=== PATIENT | male | born 1970 | race Caucasian/White ===

== ENCOUNTER 2022-09-15 01:55 | Emergency (ER) | payer OTHER ==
[2022-09-15 02:01] VITALS: BP 128/79; PULSE 99; RESP 18; TEMP 98
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
== END 2022-09-15 06:00 | disposition home or self-care (01) ==
LOC: EC 01:55
DX: F15.159 Other stimulant abuse with stimulant-induced psychotic disorder, unspecified (principal); I10 Essential (primary) hypertension; F17.200 Nicotine dependence, unspecified, uncomplicated
CPT/HCPCS: 82075; 99284

== ENCOUNTER 2022-11-07 20:45 | Emergency (ER) | payer SELFPAY ==
[2022-11-07 21:03] VITALS: TEMP 98.2
[2022-11-07] MEDS ORDERED: LORazepam 1 MG TAB PO STA (21:25)
--- NOTE | 2022-11-07 21:27 | ED ---
Psych HPI - General Chief Complaint: Psychiatric Symptoms Stated Complaint: Mental Health Time Seen by Provider: 11/07/22 21:17 Source: patient Mode of arrival: ambulatory - History of Present Illness Initial Comments: This 52-year-old male presents with complaint of methamphetamine abuse. He states that he has been doing it intermittently for the past 3 years. He is gone through rehab twice. He snorts the methamphetamines. He states that he feels very paranoid currently. He has heard occasional voices. He was here somewhat recently for similar. He is denying any current medical complaints. He denies any other drugs or alcohol. He states that he is barely been able to sleep recently. He has been very anxious. He is denying any suicidal ideations. He feels as though he may need to go back to rehabilitation. No other complaints or modifying factors. - Related Data Allergies Allergy/AdvReac Type Severity Reaction Status Date / Time No Known Allergies Allergy Verified 11/07/22 21:03 Review of Systems ROS Statement: Those systems with pertinent positive or pertinent negative responses have been documented in the HPI. ROS Other: All systems not noted in ROS Statement are negative. Past Medical History Past Medical History: Hypertension History of Any Multi-Drug Resistant Organisms: None Reported Past Surgical History: No Surgical Hx Reported Past Psychological History: No Psychological Hx Reported Smoking Status: Current every day smoker Past Alcohol Use History: None Reported Past Drug Use History: Methamphetamine General Exam - General Exam Comments Initial Comments: GENERAL: The patient is well nourished and well hydrated. VITAL SIGNS: Heart rate, blood pressure, respiratory rate reviewed as recorded in nurse's notes. EYES: Pupils are round and reactive. Extraocular movements are intact. No conjunctival / lid redness or swelling. ENT: No external evidence of injury, swelling, or ecchymosis. Airway is patent. Throat is clear. NECK: Nontender. No swelling or evidence of injury. No subcutaneous emphysema. Trachea is midline. No thyroid mass. HEART: Regular rate and rhythm. Good peripheral pulses. LUNGS/CHEST: Breath sounds clear and equal bilaterally. No rales, rhonchi, or wheezes. No ecchymosis, subcutaneous emphysema, or tenderness. ABDOMEN: Abdomen soft without tenderness. No palpable masses or organomegaly. No peritoneal signs. No abdominal wall swelling or ecchymosis. EXTREMITIES: No extremity tenderness. Normal muscle tone and function. No thoracolumbar tenderness. NEUROLOGIC: Sensation is grossly intact. Cranial nerve exam reveals face is symmetrical, tongue is midline, speech is clear. SKIN: No abrasions or ecchymosis is noted. No induration or masses noted. PSYCHIATRIC: Alert and oriented. Appears slightly anxious and fidgety. Limitations: no limitations Course Vital Signs 11/07/22 11/07/22 20:59 22:53 Temperature 98.2 F Pulse Rate 110 H 84 Respiratory 20 18 Rate Blood Pressure 116/76 139/86 O2 Sat by Pulse 97 98 Oximetry Medical Decision Making - Medical Decision Making The patient was seen and examined. All diagnostics are reviewed. Urine drug screen shows positive methamphetamines and amphetamines. Patient was seen by psych team and they clear him for discharge. Rehabilitation is recommended. Close follow up recommended. - Lab Data Lab Results 11/07/22 Range/Units 21:26 Urine Opiates Screen Not Detected (NotDetected) Ur Oxycodone Screen Not Detected (NotDetected) Urine Methadone Screen Not Detected (NotDetected) Ur Propoxyphene Screen Not Detected (NotDetected) Ur Barbiturates Screen Not Detected (NotDetected) U Tricyclic Antidepress Not Detected (NotDetected) Ur Phencyclidine Scrn Not Detected (NotDetected) Ur Amphetamines Screen Detected H (NotDetected) U Methamphetamines Scrn Detected H (NotDetected) U Benzodiazepines Scrn Not Detected (NotDetected) Urine Cocaine Screen Not Detected (NotDetected) U Marijuana (THC) Screen Not Detected (NotDetected) Disposition Clinical Impression: Methamphetamine abuse Disposition: HOME SELF-CARE Condition: Good Instructions (If sedation given, give patient instructions): Methamphetamine Abuse (ED) Is patient prescribed a controlled substance at d/c from ED?: No Referrals: Lasha Morris MD [Primary Care Provider] - 1-2 days Time of Disposition: 22:59
[2022-11-07 22:41] LABS: Amphetamine Screen,Urine Detected (NotDetected); Barbiturate Screen,Urine Not Detected (NotDetected); Benzodiazepines Screen,Urine Not Detected (NotDetected); Cocaine Screen,Urine Not Detected (NotDetected); Methadone Screen, Urine Not Detected (NotDetected); Opiate Screen,Urine Not Detected (NotDetected); Oxycodone Screen, Urine Not Detected (NotDetected); Phencyclidine Screen,Urine Not Detected (NotDetected); Tricyclic Antidepressant,Urine Not Detected (NotDetected); Urn Cannabinoid Scrn Not Detected (NotDetected)
[2022-11-07 22:54] VITALS: BP 139/86; PULSE 84; RESP 18
== END 2022-11-07 23:34 | disposition home or self-care (01) ==
LOC: EC 20:45 → SUPCPDRO 20:45 → EC 23:34
DX: F15.10 Other stimulant abuse, uncomplicated (principal); I10 Essential (primary) hypertension; F17.200 Nicotine dependence, unspecified, uncomplicated
CPT/HCPCS: 80306; 82075; 99285

== ENCOUNTER 2023-04-18 01:49 | Emergency (ER) | payer OTHER ==
[2023-04-18 02:11] VITALS: TEMP 97.7
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
[2023-04-18 04:54] VITALS: RESP 15
[2023-04-18 04:59] VITALS: BP 128/83; PULSE 86
[2023-04-18] MEDS ORDERED: ACETAMINOPHEN TAB 325 MG TAB PO STA (05:54)
== END 2023-04-18 06:29 | disposition home or self-care (01) ==
LOC: EC 01:49
DX: F15.10 Other stimulant abuse, uncomplicated (principal); R44.3 Hallucinations, unspecified; I10 Essential (primary) hypertension; F17.200 Nicotine dependence, unspecified, uncomplicated
CPT/HCPCS: 82075; 99284

== ENCOUNTER 2023-09-05 07:07 | Emergency (ER) | payer OTHER ==
[2023-09-05 07:43] VITALS: BP 136/86; PULSE 101; RESP 22; TEMP 98.1
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
[2023-09-05 08:46] LABS: Amphetamine Screen,Urine Detected (NotDetected); Barbiturate Screen,Urine Not Detected (NotDetected); Benzodiazepines Screen,Urine Not Detected (NotDetected); Cocaine Screen,Urine Not Detected (NotDetected); Methadone Screen, Urine Not Detected (NotDetected); Opiate Screen,Urine Not Detected (NotDetected); Oxycodone Screen, Urine Detected (NotDetected); Phencyclidine Screen,Urine Not Detected (NotDetected); Tricyclic Antidepressant,Urine Not Detected (NotDetected); Urn Cannabinoid Scrn Detected (NotDetected)
== END 2023-09-05 13:21 | disposition home or self-care (01) ==
LOC: EC 07:07
DX: F15.10 Other stimulant abuse, uncomplicated (principal); F23 Brief psychotic disorder; I10 Essential (primary) hypertension; E78.5 Hyperlipidemia, unspecified; F17.200 Nicotine dependence, unspecified, uncomplicated; Z79.899 Other long term (current) drug therapy
CPT/HCPCS: 80306; 82075; 99285

== ENCOUNTER 2024-01-13 18:30 | Emergency (ER) | payer OTHER ==
[2024-01-13] MEDS: HYDROmorphone 1 MG/ML 1 ML SYRINGE IVP STA (18:41)
[2024-01-13] MEDS: SODIUM CHLORIDE 0.9% 1,000 ML IV STA (18:44)
[2024-01-13 19:00] LABS: Basophils # (A) 0.1 k/uL (0-0.2); Basophils % (A) 1 %; Eosinophils # (A) 0.3 k/uL (0-0.7); Eosinophils % (A) 2 %; HCT 31.8 % (39.0-53.0); HGB 11.3 gm/dL (13.0-17.5); Lymphocytes # (A) 1.3 k/uL (1.0-4.8); Lymphocytes % (A) 10 %; MCH 30.1 pg (25.0-35.0); MCHC 35.5 g/dL (31.0-37.0); MCV 84.8 fL (80.0-100.0); Mean Platelet Volume 6.8; Monocytes % (A) 8 %; Neutrophils # (A) 9.6 k/uL (1.3-7.7); Neutrophils % (A) 77 %; Platelet Count 433 k/uL (150-450); RBC 3.76 m/uL (4.30-5.90); RDW 13.3 % (11.5-15.5); WBC 12.4 k/uL (3.8-10.6)
--- NOTE | 2024-01-13 19:00 | ED ---
General Adult HPI - General Chief complaint: Back Pain/Injury Stated complaint: Uncontrol pain Time Seen by Provider: 01/13/24 18:35 Source: patient, EMS, RN notes reviewed, old records reviewed Mode of arrival: EMS Limitations: no limitations - History of Present Illness Initial comments: Patient is a 53-year-old male who presents emergency department complaining of worsening acute pain status post surgery. Fractured his pelvis last week as well as his ankle. Began experiencing worsening pain today. Is on oxycodone. Presents for worsening leg pain at this time. States it is in his right buttock and radiates down the back of his leg. Is stable to move his leg. Has been bedbound over this period of time. Denies any fevers, chills, cough, chest pain, shortness of breath. Denies any abdominal pain, nausea, vomiting. No other acute complaints at this time. Patient does have a history of methamphetamine abuse. Also hypertension hyperlipidemia. Patient has been evaluated here in the past for mental health. Presents for further evaluation at this time. Presents from a rehab facility. - Related Data Home Medications Medication Instructions Recorded Confirmed amLODIPine [Norvasc] 10 mg PO DAILY 06/12/23 09/05/23 hydrOXYzine HCL [Atarax] 50 mg PO DAILY 06/12/23 09/05/23 Cyclobenzaprine [Flexeril] 10 mg PO TID PRN 09/05/23 09/05/23 Ibuprofen [Motrin] 800 mg PO Q8H PRN 09/05/23 09/05/23 Rosuvastatin [Crestor] 20 mg PO DAILY 09/05/23 09/05/23 Allergies Allergy/AdvReac Type Severity Reaction Status Date / Time No Known Allergies Allergy Verified 01/13/24 18:36 Review of Systems ROS Statement: Those systems with pertinent positive or pertinent negative responses have been documented in the HPI. Review of Systems: CONST: Denies fever EYES: Denies blurry vision ENT: Denies nasal congestion C/V: Denies Chest pain RESP: Denies shortness of breath GI: Denies abdominal pain : Denies dysuria SKIN: Denies rash. MSK: Endorses worsening right leg pain NEURO: Denies headache ROS Other: All systems not noted in ROS Statement are negative. Past Medical History Past Medical History: Hyperlipidemia, Hypertension History of Any Multi-Drug Resistant Organisms: None Reported Past Surgical History: No Surgical Hx Reported Past Psychological History: No Psychological Hx Reported Smoking Status: Current every day smoker Past Alcohol Use History: Occasional Past Drug Use History: Methamphetamine General Exam Limitations: no limitations Course Vital Signs 01/13/24 01/13/24 01/13/24 18:34 20:00 21:14 Temperature 98.2 F 98.5 F Pulse Rate 100 91 92 Respiratory 20 16 15 Rate Blood Pressure 167/99 137/81 133/80 O2 Sat by Pulse 99 92 L 95 Oximetry Medical Decision Making - Medical Decision Making Was pt. sent in by a medical professional or institution (, PA, PAYROLL TECHNICIAN, urgent care, hospital, or long term...) When possible be specific @ -Sent from his rehab facility for evaluation for intractable pain. Did you speak to anyone other than the patient for history (EMS, parent, family, police, friend...)? What history was obtained from this source @ -No Did you review nursing and triage notes (agree or disagree)? Why? @ -I reviewed and agree with nursing and triage notes Were old charts reviewed (outside hosp., previous admission, EMS record, old EKG, old radiological studies, urgent care reports/EKG's, long term records)? Report findings @ -Old charts reviewed. Differential Diagnosis (chest pain, altered mental status, abdominal pain women, abdominal pain men, vaginal bleeding, weakness, fever, dyspnea, syncope, headache, dizziness, GI bleed, back pain, seizure, CVA, palpatations, mental health, musculoskeletal)? @ -MDM differential musculoskeletal. EKG interpreted by me (3pts min.). @ -None done X-rays interpreted by me (1pt min.). @ -None done CT interpreted by me (1pt min.). @ -Imaging negative for any obvious acute fractures but does have what appears to be hematoma in the right buttock which is expected with recent surgery. No other obvious acute findings. Prior fractures redemonstrated. Fixation parth in place. U/S interpreted by me (1pt. min.). @ -None done What testing was considered but not performed or refused? (CT, X-rays, U/S, labs)? Why? @ -None What meds were considered but not given or refused? Why? @ -None Did you discuss the management of the patient with other professionals (professionals i.e. , PA, PAYROLL TECHNICIAN, lab, RT, psych nurse, bilingual social worker, lawyer real estate, teacher, disciplinary hearing officer, upper caser)? Give summary @ -I did contact the patient's PCP, Dr. Gallagher and discussed the case, labs, imaging with him. He believes that his appropriate for the patient to be disc harged back to his rehab facility and he will follow-up with him there. I believe this is reasonable. Patient was in agreement this plan. Was smoking cessation discussed for >3mins.? @ -No Was critical care preformed (if so, how long)? @ -No Were there social determinants of health that impacted care today? How? (Homelessness, low income, unemployed, alcoholism, drug addiction, transportation, low edu. Level, literacy, decrease access to med. care, residential, rehab)? @ -No Was there de-escalation of care discussed even if they declined (Discuss DNR or withdrawal of care, Hospice)? DNR status @ -No What co-morbidities impacted this encounter? (DM, HTN, Smoking, COPD, CAD, Cancer, CVA, ARF, Chemo, Hep., AIDS, mental health diagnosis, sleep apnea, morbid obesity)? @ -None Was patient admitted / discharged? Hospital course, mention meds given and route, prescriptions, significant lab abnormalities, going to OR and other pertinent info. @ -Patient presents for intractable postop pain. Was on oxycodone. Pain worsened today. Seems to be somewhat sciatic in nature. Has no red flag sy mptoms concerning for cauda equina syndrome at this time. Vital signs are within acceptable limits. We will obtain CT imaging of the abdomen pelvis as well as lumbar spine. He will be symptomatically treated with IV fluids as well as analgesia medications. Basic labs will be obtained. He was in agreement this plan. Patient's labs remarkable for slight anemia as well as slight leukocytosis of 12 which is likely secondary to pain and reactive. Remainder of labs within acceptable limits. Imaging negative for any obvious acute fractures but does have what appears to be hematoma in the right buttock which is expected with recent surgery. No other obvious acute findings. Prior fractures redemonstrated. Fixation parth in place. I updated the patient. Pain is controlled at this time. I did contact the patient's PCP, Dr. Gallagher and discussed the case, labs, imaging with him. He believes that his appropriate for the patient to be discharged back to his rehab facility and he will follow-up with him there. I believe this is reasonable. Patient was in agreement this plan. He will be discharged home at this time. He does not require additional pain medications as he is on oxycodone at the facility. I instructed the patient to follow up with their PCP in the next 1-3 days. I explained that the patient should return to the emergency department if they experience any worsening symptoms. Strict return precautions were discussed with the patient. The patient expressed understanding of these instructions. I answered all questions that the patient had. The patient was discharged home in good condition with their prescriptions and follow up information. Undiagnosed new problem with uncertain prognosis? @ -No Drug Therapy requiring intensive monitoring for toxicity (Heparin, Nitro, Insulin, Cardizem)? @ -No Were any procedures done? @ -No Diagnosis/symptom? @ -Postop pain, chronic pain, postop hematoma Acute, or Chronic, or Acute on Chronic? @ -Acute Uncomplicated (without systemic symptoms) or Complicated (systemic symptoms)? @ -Uncomplicated Side effects of treatment? @ -None Exacerbation, Progression, or Severe Exacerbation] @ -No Poses a threat to life or bodily function? @ -No - Lab Data Result diagrams: 01/13/24 18:37 01/13/24 18:37 Lab Results 01/13/24 01/13/24 01/13/24 Range/Units 18:37 18:37 18:37 WBC 12.4 H (3.8-10.6) k/uL RBC 3.76 L (4.30-5.90) m/uL Hgb 11.3 L (13.0-17.5) gm/dL Hct 31.8 L (39.0-53.0) % MCV 84.8 (80.0-100.0) fL MCH 30.1 (25.0-35.0) pg MCHC 35.5 (31.0-37.0) g/dL RDW 13.3 (11.5-15.5) % Plt Count 433 (150-450) k/uL MPV 6.8 Neutrophils % 77 % Lymphocytes % 10 % Monocytes % 8 % Eosinophils % 2 % Basophils % 1 % Neutrophils # 9.6 H (1.3-7.7) k/uL Lymphocytes # 1.3 (1.0-4.8) k/uL Monocytes # 1.0 (0-1.0) k/uL Eosinophils # 0.3 (0-0.7) k/uL Basophils # 0.1 (0-0.2) k/uL PT 10.1 (10.0-12.5) sec INR 0.9 (<1.2) APTT 24.7 (22.0-30.0) sec Sodium (137-145) mmol/L Potassium (3.5-5.1) mmol/L Chloride (98-107) mmol/L Carbon Dioxide (22-30) mmol/L Anion Gap mmol/L BUN (9-20) mg/dL Creatinine (0.66-1.25) mg/dL Est GFR (CKD-EPI)AfAm (>60 ml/min/1.73 sqM) Est GFR (CKD-EPI)NonAf (>60 ml/min/1.73 sqM) Glucose (74-99) mg/dL Calcium (8.4-10.2) mg/dL Total Bilirubin (0.2-1.3) mg/dL AST (17-59) U/L ALT (4-49) U/L Alkaline Phosphatase (38-126) U/L Total Protein (6.3-8.2) g/dL Albumin (3.5-5.0) g/dL Urine Color Light Yellow Urine Appearance Clear (Clear) Urine pH 6.5 (5.0-8.0) Ur Specific [place] 1.017 (1.001-1.035) Urine Protein Negative (Negative) Urine Glucose (UA) Negative (Negative) Urine Ketones Negative (Negative) Urine Blood Trace H (Negative) Urine Nitrite Negative (Negative) Urine Bilirubin Negative (Negative) Urine Urobilinogen <2.0 (<2.0) mg/dL Ur Leukocyte Esterase Negative (Negative) Urine RBC 16 H (0-5) /hpf Urine WBC 2 (0-5) /hpf Ur Squamous Epith Cells <1 (0-4) /hpf Urine Mucus Rare H (None) /hpf 01/13/24 Range/Units 18:37 WBC (3.8-10.6) k/uL RBC (4.30-5.90) m/uL Hgb (13.0-17.5) gm/dL Hct (39.0-53.0) % MCV (80.0-100.0) fL MCH (25.0-35.0) pg MCHC (31.0-37.0) g/dL RDW (11.5-15.5) % Plt Count (150-450) k/uL MPV Neutrophils % % Lymphocytes % % Monocytes % % Eosinophils % % Basophils % % Neutrophils # (1.3-7.7) k/uL Lymphocytes # (1.0-4.8) k/uL Monocytes # (0-1.0) k/uL Eosinophils # (0-0.7) k/uL Basophils # (0-0.2) k/uL PT (10.0-12.5) sec INR (<1.2) APTT (22.0-30.0) sec Sodium 133 L (137-145) mmol/L Potassium 4.7 (3.5-5.1) mmol/L Chloride 102 (98-107) mmol/L Carbon Dioxide 23 (22-30) mmol/L Anion Gap 8 mmol/L BUN 14 (9-20) mg/dL Creatinine 0.70 (0.66-1.25) mg/dL Est GFR (CKD-EPI)AfAm >90 (>60 ml/min/1.73 sqM) Est GFR (CKD-EPI)NonAf >90 (>60 ml/min/1.73 sqM) Glucose 161 H (74-99) mg/dL Calcium 8.8 (8.4-10.2) mg/dL Total Bilirubin 0.5 (0.2-1.3) mg/dL AST 58 (17-59) U/L ALT 68 H (4-49) U/L Alkaline Phosphatase 107 (38-126) U/L Total Protein 5.8 L (6.3-8.2) g/dL Albumin 3.2 L (3.5-5.0) g/dL Urine Color Urine Appearance (Clear) Urine pH (5.0-8.0) Ur Specific [place] (1.001-1.035) Urine Protein (Negative) Urine Glucose (UA) (Negative) Urine Ketones (Negative) Urine Blood (Negative) Urine Nitrite (Negative) Urine Bilirubin (Negative) Urine Urobilinogen (<2.0) mg/dL Ur Leukocyte Esterase (Negative) Urine RBC (0-5) /hpf Urine WBC (0-5) /hpf Ur Squamous Epith Cells (0-4) /hpf Urine Mucus (None) /hpf Disposition Clinical Impression: Hematoma, Chronic pain, Post-op pain Disposition: HOME SELF-CARE Condition: Good Instructions (If sedation given, give patient instructions): Acute Low Back Pain (ED) Is patient prescribed a controlled substance at d/c from ED?: No Referrals: Oleksandr Gallagher MD [Primary Care Provider] - 1-2 days Time of Disposition: 20:34
[2024-01-13 19:11] LABS: Appearance,Urine Clear (Clear); Bilirubin,Urine Negative (Negative); Blood,Urine Trace (Negative); Color,Urine Light Yellow; Glucose,Urine (UA) Negative (Negative); Ketones,Urine Negative (Negative); Leukocyte Esterase,Urine Negative (Negative); Mucus,Urine Rare /hpf; Nitrite,Urine Negative (Negative); PH, Urine 6.5 (5.0-8.0); Protein,Urine Negative (Negative); RBC,Urine 16 /hpf (0-5); Specific Gravity,Urine 1.017 (1.001-1.035); Squamous Epithelial Cell,Urine <1 /hpf (0-4); Urobilinogen,Urine <2.0 mg/dL (<2.0); WBC,Urine 2 /hpf (0-5)
[2024-01-13 19:12] LABS: ALT 68 U/L (4-49); AST 58 U/L (17-59); African American GFR (CKD) >90 (>60 ml/min/1.73 sqM); Albumin 3.2 g/dL (3.5-5.0); Alkaline Phosphatase 107 U/L (38-126); Anion Gap 8 mmol/L; Blood Urea Nitrogen 14 mg/dL (9-20); Calcium 8.8 mg/dL (8.4-10.2); Carbon Dioxide 23 mmol/L (22-30); Chloride 102 mmol/L (98-107); Glucose 161 mg/dL (74-99); Non-African American GFR(CKD) >90 (>60 ml/min/1.73 sqM); Potassium 4.7 mmol/L (3.5-5.1); Sodium 133 mmol/L (137-145); Total Bilirubin 0.5 mg/dL (0.2-1.3); Total Protein 5.8 g/dL (6.3-8.2)
[2024-01-13 19:18] LABS: INR 0.9 (<1.2); Partial Thromboplastin Time 24.7 sec (22.0-30.0); Prothrombin Time 10.1 sec (10.0-12.5)
--- NOTE | 2024-01-13 20:13 | CT ---
EXAMINATION TYPE: CT abdomen pelvis w con, CT lumbar spine wo con CT DLP: 1109.4 (accession [id number]), 1025.6 (accession [id number]) mGycm, Automated exposure control fo r dose reduction was used. DATE OF EXAM: 01/13/2024 7:14 PM COMPARISON: None CLINICAL INDICATION:Male, 53 years old with history of right hip pain, recent pelvis surgery; Rt hip pain, recent pelvic surgery after falling 10ft. TECHNIQUE: Axial CT abdomen pelvis w con, CT lumbar spine wo con;Sagittal and coronal reformats were created on a separate workstation. Axial imaging of the lumbar spine with reformats was submitted for review. Contrast used:100 ml mL of Isovue 300 with IV Contrast, (none if empty) Oral contrast used: without Oral Contrast (none if empty) FINDINGS: LOWER CHEST: Unremarkable ABDOMEN LIVER: Scattered low-density lesions likely representing cysts. GALLBLADDER AND BILE DUCTS: Unremarkable. PANCREAS: Unremarkable. SPLEEN: Unremarkable. ADRENAL GLANDS: Unremarkable. KIDNEYS AND URETERS: No evidence of hydronephrosis or renal calculus. The ureters are unremarkable. Nonobstructing right renal calculus measuring up to 2 mm. PELVIS BLADDER: Simms catheter in place. REPRODUCTIVE: Unremarkable. ABDOMEN & PELVIS STOMACH AND BOWEL: No evidence of bowel obstruction. PERITONEUM/RETROPERITONEUM: No evidence of pneumoperitoneum or free fluid. VASCULATURE: No evidence of aortic aneurysm. MUSCULOSKELETAL: Acute fracture through the right L5 transverse process. Fracture through the sacrum with fixation screw present. Fixation hardware along the anterior pubic symphysis. There is large vaughn pected hematoma measuring 72 x 55 mm on coronal imaging. And/or postsurgical change in the right butt ock. Imaging of the spine. Suspected disc bulge at L4-L5 with at least mild to moderate spinal canal steno sis. Fracture of the right transverse process of L5. The sacrum demonstrates fracture through the rig ht aspect extending superiorly to inferiorly. Multilevel degeneration changes of the spine. No additi onal fractures. LYMPH NODES: No gross evidence for lymphadenopathy. SOFT TISSUE/ABDOMINAL WALL: Postsurgical changes to the anterior subcutaneous tissues with foci of ga s present. IMPRESSION: 1. Large right buttock hematoma which is poorly visualized due to CT technique. Area felt to measure at least 72 x 55 mm Finding could be secondary to recent history trauma versus postsurgical change. Correlate with blood work and consideration for MRI could be of benefit. 2. L4-L5 disc bulge poorly evaluated on CT with at least [id number] spinal canal stenosis. 3. Fracture of the L5 vertebrae and sacrum with fixation parth in place. Hardware also along the anter ior pubic symphysis. Hardware appears intact.
[2024-01-13 21:33] VITALS: BP 133/80; PULSE 92; RESP 15; TEMP 98.5
== END 2024-01-13 21:15 | disposition home or self-care (01) ==
LOC: EC 18:30
DX: G89.29 Other chronic pain (principal); G89.18 Other acute postprocedural pain; S30.0XXA Contusion of lower back and pelvis, initial encounter; E78.5 Hyperlipidemia, unspecified; I10 Essential (primary) hypertension; F17.200 Nicotine dependence, unspecified, uncomplicated; F15.90 Other stimulant use, unspecified, uncomplicated; Z79.899 Other long term (current) drug therapy; X58.XXXA Exposure to other specified factors, initial encounter
CPT/HCPCS: 36415; 80053; 85025; 85610; 85730; 81001; 72131; 74177; 99285; 96374; 96361; J1170; Q9967

== ENCOUNTER 2024-12-11 10:10 | Day surgery (SDC) | payer OTHER ==
[2024-12-10 08:49] VITALS: BMI 25.1
[~2024-12-11 10:10] MED LIST: LIDOCAINE 1% (10MG/ML) FOR IV START INTRADERMA PRN
[2024-12-11] MEDS: IV FLUID CONTINUATION 1,000 ML IV ONE (10:48)
[2024-12-11 10:50] VITALS: TEMP 97
[2024-12-11] MEDS: LACTATED RINGERS 1,000 ML IV SCH (10:57)
[2024-12-11] MEDS ORDERED: PROPOFOL 10 MG/ML 20 ML VIAL IV ONE (11:32)
--- NOTE | 2024-12-11 11:50 | P.PCN ---
Date of Procedure: 12/11/24 Procedure(s) Performed: BRIEF HISTORY: Patient is a 54-year-old pleasant male scheduled for an elective colonoscopy as a part of screening for colon cancer. PROCEDURE PERFORMED: Colonoscopy. PREOPERATIVE DIAGNOSIS: Screening for colon cancer. IV sedation per Anesthesia. PROCEDURE: After informed consent was obtained, the patient, was brought into the endoscopy unit. IV sedation was administered by Anesthesia under continuous monitoring. Digital rectal examination was normal. Initially the Olympus CF-160 flexible video colonoscope was then inserted in the rectum, gradually advanced into the cecum without any difficulty. Careful examination was performed as the scope was gradually being withdrawn. Ileocecal valve and the appendiceal orifice were visualized and appeared normal. Prep was excellent. Mucosa of the cecum, ascending colon, transverse colon, descending colon, sigmoid colon, and rectum appeared normal. Scattered sigmoid diverticulosis. Retroflexion was performed in the rectum and no lesions were seen. The patient tolerated the procedure well. IMPRESSION: Normal-appearing colon from rectum to cecum no evidence of colorectal neoplasia. Scattered sigmoid diverticulosis. RECOMMENDATIONS: Findings of this examination were discussed with the patient as well as his family. He was advised to have repeat screening colonoscopy in 10 years..
[2024-12-11 12:06] VITALS: RESP 14
[2024-12-11 12:11] VITALS: PULSE 65
[2024-12-11 12:22] VITALS: BP 127/77
== END 2024-12-11 12:36 | disposition home or self-care (01) ==
LOC: ORWHC2ENDO 10:10
PROVIDERS: ATTEND Internal Medicine Gastroenterology
DX: Z12.11 Encounter for screening for malignant neoplasm of colon (principal); K57.30 Diverticulosis of large intestine without perforation or abscess without bleeding; I10 Essential (primary) hypertension; F32.A Depression, unspecified; Z79.899 Other long term (current) drug therapy
CPT/HCPCS: 45378; J2704

== ENCOUNTER 2024-12-17 04:10 | Emergency (ER) | payer OTHER ==
[2024-12-17 04:27] VITALS: RESP 18
[2024-12-17] MEDS: GLUCAGON 1 MG/ML VIAL IVP STA (05:50)
[2024-12-17] MEDS: SODIUM CHLORIDE 0.9% 1,000 ML IV ONE (05:50)
[2024-12-17] MEDS: PANTOPRAZOLE 40 MG/10 ML VIAL IVP STA (05:50)
--- NOTE | 2024-12-17 05:57 | ED ---
General Adult HPI - General Chief complaint: ENT Stated complaint: Throat Pain Time Seen by Provider: 12/17/24 04:35 Source: patient, RN notes reviewed, old records reviewed Mode of arrival: ambulatory Limitations: no limitations - History of Present Illness Initial comments: 54-year-old male presenting for evaluation of esophageal food impaction. Gina ent states he was eating chicken several hours prior to arrival. He feels that it got stuck in his upper esophagus. He had no difficulty breathing. He is unable to swallow his secretions and has had multiple episodes of vomiting. Patient states this has happened in the past but never has lasted this long. - Related Data Home Medications Medication Instructions Recorded Confirmed amLODIPine [Norvasc] 10 mg PO DAILY 06/12/23 12/11/24 Venlafaxine HCl [Effexor] 75 mg PO DAILY 12/10/24 12/11/24 Allergies Allergy/AdvReac Type Severity Reaction Status Date / Time No Known Allergies Allergy Verified 12/11/24 10:45 Review of Systems ROS Statement: Those systems with pertinent positive or pertinent negative responses have been documented in the HPI. ROS Other: All systems not noted in ROS Statement are negative. Past Medical History Past Medical History: Hypertension History of Any Multi-Drug Resistant Organisms: None Reported Past Surgical History: No Surgical Hx Reported Additional Past Surgical History / Comment(s): fractured pelvis Past Anesthesia/Blood Transfusion Reactions: No Reported Reaction Additional Past Anesthesia/Blood Transfusion Reaction / Comment(s): no blood transfusion Past Psychological History: No Psychological Hx Reported, Depression Smoking Status: Never smoker - Past Family History Mother Family Medical History: Cancer Additional Family Medical History / Comment(s): leukemia General Exam Limitations: no limitations General appearance: alert, in no apparent distress Head exam: Present: atraumatic, normocephalic Eye exam: Present: normal appearance, PERRL Neck exam: Present: normal inspection. Absent: tenderness, meningismus Respiratory exam: Present: normal lung sounds bilaterally. Absent: respiratory distress, wheezes, stridor Cardiovascular Exam: Present: regular rate, normal rhythm GI/Abdominal exam: Present: soft. Absent: distended, tenderness, guarding Extremities exam: Present: normal inspection, normal capillary refill. Absent: pedal edema Neurological exam: Present: alert, oriented X3, CN II-XII intact. Absent: motor sensory deficit Psychiatric exam: Present: normal affect, normal mood Skin exam: Present: warm, dry, intact Course Vital Signs 12/17/24 04:21 Temperature 97.7 F Pulse Rate 100 Respiratory 18 Rate Blood Pressure 144/85 O2 Sat by Pulse 98 Oximetry Medical Decision Making - Medical Decision Making Was pt. sent in by a medical professional or institution (SAVITA Smith, MANUFACTURING TECHNOLOGIST, urgent care, hospital, or senior living...) When possible be specific @ -No Did you speak to anyone other than the patient for history (EMS, parent, family, police, friend...)? What history was obtained from this source @ -No Did you review nursing and triage notes (agree or disagree)? Why? @ -I reviewed and agree with nursing and triage notes Were old charts reviewed (outside hosp., previous admission, EMS record, old EKG, old radiological studies, urgent care reports/EKG's, senior living records)? Report findings @ -No old charts were reviewed Differential Diagnosis esophageal food impaction, esophageal stricture, esophageal mass. EKG interpreted by me (3pts min.). @ -As above X-rays interpreted by me (1pt min.). @ -None done CT interpreted by me (1pt min.). @ -None done U/S interpreted by me (1pt. min.). @ -None done What testing was considered but not performed or refused? (CT, X-rays, U/S, labs)? Why? @ -None What meds were considered but not given or refused? Why? @ -None Did you discuss the management of the patient with other professionals (professionals i.e. SAVITA Smith, MANUFACTURING TECHNOLOGIST, lab, RT, psych nurse, social media project manager, criminal lawyer, teacher, founder chairman and chief creative officer, binder caser)? Give summary @Patient discussed with [facility] team, will accept transfer for GI Was smoking cessation discussed for >3mins.? @ -No Was critical care preformed (if so, how long)? @ -No Were there social determinants of health that impacted care today? How? (Homeles sness, low income, unemployed, alcoholism, drug addiction, transportation, low edu. Level, literacy, decrease access to med. care, intermediate, rehab)? @ -No Was there de-escalation of care discussed even if they declined (Discuss DNR or withdrawal of care, Hospice)? DNR status @ -No What co-morbidities impacted this encounter? (DM, HTN, Smoking, COPD, CAD, Cancer, CVA, ARF, Chemo, Hep., AIDS, mental health diagnosis, sleep apnea, morbid obesity)? @ -None Was patient admitted / discharged? Hospital course, mention meds given and route, prescriptions, significant lab abnormalities, going to OR and other pertinent info. @ -H 54-year-old male with inability to swallow after eating chicken. Patient states he feels like it is in his throat. He is vomited multiple times and is unable to swallow his secretions. Patient is given carbonated beverage, Valium, glucagon. Attempts at relieving the obstruction around is successful. Patient will require GI evaluation. Transfer to [facility]. Undiagnosed new problem with uncertain prognosis? @ -No Drug Therapy requiring intensive monitoring for toxicity (Heparin, Nitro, Insulin, Cardizem)? @ -No Were any procedures done? @ -No Diagnosis/symptom? @Esophageal food impaction Acute, or Chronic, or Acute on Chronic? @Acute Uncomplicated (without systemic symptoms) or Complicated (systemic symptoms)? @ -Default Side effects of treatment? @ -No Exacerbation, Progression, or Severe Exacerbation? @ -No Poses a threat to life or bodily function? How? (Chest pain, [place], [place], pneumonia, PE, COPD, DKA, ARF, appy, cholecystitis, CVA, Diverticulitis, Homicidal, Suicidal, threat to staff... and all critical care pts) @ -No Disposition Clinical Impression: Esophageal obstruction due to food impaction Disposition: OTHER INSTITUTION NOT DEFINED Condition: Stable Is patient prescribed a controlled substance at d/c from ED?: No Referrals: Oleksandr Gallagher MD [Primary Care Provider] - 1-2 days Time of Disposition: 06:34 - Out of Hospital Transfer - Req. Specs Out of Hospital Transfer - Requested Specifics: Other Emergency Center ([facility])
[2024-12-17 07:39] VITALS: BP 150/76; PULSE 72; TEMP 98
== END 2024-12-17 07:54 | disposition other institution (70) ==
LOC: EC 04:10
DX: K22.2 Esophageal obstruction (principal); T18.128A Food in esophagus causing other injury, initial encounter; W44.F3XA Food entering into or through a natural orifice, initial encounter
CPT/HCPCS: 99284; 96374; 96375 ×2; 96376; 96361; J1610; J3360; J2470